=== PATIENT | female | born 1975 | race Caucasian/White ===

== ENCOUNTER → 2016-12-06 | Outpatient (CLI) | payer MEDICAID ==
--- NOTE | 2016-12-06 12:03 | MR ---
MR left hip HISTORY: Pain in left hip Multiplanar multisequence imaging through the pelvis with small [id number] images through the left hip. No comparisons There is abnormal signal present at the insertion of the gluteus tendon on the greater trochanter, fl uid signal is present, there is likely local edema and possibly tendinosis or possibly partial tear. Probable physiologic joint fluid present within both hips. Bone marrow signal is symmetric and within normal limits. No evident labral tear. Articular cartilage signal is maintained. There is a left adn exal cystic mass measuring 3.6 x 3 x 1.9 cm which show some increased signal on T1-weighted sequences as well as T2 and may represent a hemorrhagic cyst, there is some luminal signal abnormality. Some f ree fluid present within the pelvis. Some small focal areas of low signal within the uterus may repre sent fibroids. IMPRESSION: Tendinopathy suspected at the insertion of the gluteus tendon at the greater trochanter. There may be partial tear. Additional findings above.
== END | disposition home or self-care (01) ==
LOC: RADMRIMAIN 08:09
PROVIDERS: ATTEND Orthopaedic Surgery
DX: S76.012A Strain of muscle, fascia and tendon of left hip, initial encounter (principal); S76.312D Strain of muscle, fascia and tendon of the posterior muscle group at thigh level, left thigh, subsequent encounter

== ENCOUNTER 2017-08-06 16:27 | Emergency (ER) | payer MEDICAID ==
[2017-08-06 16:31] VITALS: BP 137/75; PULSE 109; RESP 20; TEMP 98.1
[2017-08-06] MEDS ORDERED: AMOXIC-POT CLAV 875-125MG 1 EACH TAB PO STA (16:40)
[2017-08-06] MEDS ORDERED: DIPH,PERTUS(ACELL)TETVAC-LF 0.5 ML VIAL IM ONE (16:43)
--- NOTE | 2017-08-06 16:49 | ED ---
Animal Bite HPI - General Chief Complaint: Animal Bite Stated Complaint: Dog bite back of leg Time Seen by Provider: 08/06/17 16:33 Source: patient, RN notes reviewed Mode of arrival: ambulatory Limitations: no limitations - History of Present Illness Initial Comments: 41-year-old female presented emergency Department chief complaint of dog bite to her left posterior thigh. Patient states she was running when a neighbor's dog chemo and bent her leg. She states she does not wound person is and whether dog is at. She does not know the status of rejection at this time. Patient states she has not had a tetanus in over 5 years. Patient states she has NO KNOWN DRUG ALLERGIES. Patient states there is very painful sore at this time. - Related Data Home Medications Medication Instructions Recorded Confirmed Desvenlafaxine Succinate [Pristiq 50 mg PO QAM 10/12/14 10/14/14 ER] Previous Rx's Medication Instructions Recorded HYDROcodone/APAP 5-325MG [[place] 5] 1 - 2 each PO Q4HR PRN #90 tab 10/14/14 hydrOXYzine PAMOATE [Vistaril] 25 mg PO QID PRN #30 cap 10/14/14 Amoxicillin/Potassium Clav 1 tab PO Q12HR #20 tab 08/06/17 [Augmentin 875-125 Tablet] Hydrocodone/Acetaminophen [[place] 1 tab PO Q6HR PRN #20 tab 08/06/17 5-325] Allergies Allergy/AdvReac Type Severity Reaction Status Date / Time No Known Allergies Allergy Verified 08/06/17 16:31 Review of Systems ROS Statement: Those systems with pertinent positive or pertinent negative responses have been documented in the HPI. ROS Other: All systems not noted in ROS Statement are negative. Past Medical History Past Medical History: No Reported History History of Any Multi-Drug Resistant Organisms: None Reported Past Surgical History: Uterine Ablation Additional Past Surgical History / Comment(s): LASIK SURGERY, Left shoulder surgery Past Anesthesia/Blood Transfusion Reactions: No Reported Reaction Past Psychological History: Depression Smoking Status: Never smoker Past Alcohol Use History: Occasional Past Drug Use History: None Reported General Exam Limitations: no limitations General appearance: alert, in no apparent distress Head exam: Present: atraumatic, normocephalic, normal inspection Neck exam: Present: normal inspection. Absent: tenderness, meningismus, lymphadenopathy Respiratory exam: Present: normal lung sounds bilaterally. Absent: respiratory distress, wheezes, rales, rhonchi, stridor Cardiovascular Exam: Present: regular rate, normal rhythm, normal heart sounds. Absent: systolic murmur, diastolic murmur, rubs, gallop, clicks Extremities exam: Present: other (Left posterior thigh region there is a large area of swelling in an area where the dog bite was with breakage of the skin) Course Vital Signs 08/06/17 16:29 Temperature 98.1 F Pulse Rate 109 H Respiratory 20 Rate Blood Pressure 137/75 O2 Sat by Pulse 98 Oximetry Medical Decision Making - Medical Decision Making 41-year-old female presented for a dog bite. Patient does not with a dog lives at and will follow with ulnar. Patient filled out dog bite form and will also follow-up with animal control. We discussed that if she does not another rabies status that she needs return for rabies vaccine tear. She does agree this plan. Patient was placed on Augmentin the wound was cleaned bacitracin applied. Disposition Clinical Impression: Dog bite Disposition: HOME SELF-CARE Condition: Stable Instructions: Animal Bite (ED) Additional Instructions: Please follow up with animal control and with dog manager mac for rabies vaccine status.Please return to the Emergency Department if symptoms worsen or any other concerns. Prescriptions: Amoxicillin/Potassium Clav [Augmentin 875-125 Tablet] 1 tab PO Q12HR #20 tab Hydrocodone/Acetaminophen [[place] 5-325] 1 tab PO Q6HR PRN #20 tab PRN Reason: Pain Referrals: Yoshi Vasquez DO [Primary Care Provider] - 1-2 days Time of Disposition: 16:49
== END 2017-08-06 17:06 | disposition home or self-care (01) ==
LOC: EC 16:27
DX: S71.152A Open bite, left thigh, initial encounter (principal); F32.9 Major depressive disorder, single episode, unspecified; Z23 Encounter for immunization; Z79.899 Other long term (current) drug therapy; W54.0XXA Bitten by dog, initial encounter; Y93.02 Activity, running
CPT/HCPCS: 90471; 90715; 99283

== ENCOUNTER → 2018-02-24 | Outpatient (CLI) | payer MEDICAID ==
[2018-02-24 13:36] LABS: Basophils % (A) 1 %; Eosinophils # (A) 0.1 k/uL (0-0.7); Eosinophils % (A) 2 %; HCT 38.6 % (34.0-46.0); HGB 12.9 gm/dL (11.4-16.0); Lymphocytes # (A) 1.7 k/uL (1.0-4.8); Lymphocytes % (A) 27 %; MCH 28.4 pg (25.0-35.0); MCHC 33.3 g/dL (31.0-37.0); MCV 85.4 fL (80.0-100.0); Mean Platelet Volume 7.6; Monocytes # (A) 0.3 k/uL (0-1.0); Monocytes % (A) 5 %; Neutrophils # (A) 4.2 k/uL (1.3-7.7); Neutrophils % (A) 65 %; Platelet Count 256 k/uL (150-450); RBC 4.52 m/uL (3.80-5.40); RDW 13.1 % (11.5-15.5); WBC 6.5 k/uL (3.8-10.6)
[2018-02-24 15:44] LABS: Erythrocyte Sedimentation Rate 2 mm/hr (0-20)
--- NOTE | 2018-02-24 17:44 | XR ---
EXAMINATION TYPE: XR chest 2V DATE OF EXAM: 02/24/2018 COMPARISON: NONE HISTORY: R05 TECHNIQUE: Frontal and lateral views of the chest are obtained. FINDINGS: There is no focal air space opacity, pleural effusion, or pneumothorax seen. The cardiac silhouette size is within normal limits. The osseous structures are intact. IMPRESSION: No acute cardiopulmonary process.
[2018-02-25 05:16] LABS: Toxoplasma Antibody (IgG) <3.0 IU/mL (<7.2); Toxoplasma Antibody (IgM) <3.0 AU/mL (<8.0)
[2018-02-25 05:58] LABS: Angiotensin-1 Converting Enz. 32 U/L (8-52)
[2018-02-25 13:02] LABS: HLA B27 POSITIVE
[2018-02-27 02:32] LABS: Bartonella henselae Ab, IgG <1:64; Bartonella henselae Ab, IgM < 1:16
[2018-02-27 10:06] LABS: Lyme IgG/IgM 0.1 Index
== END | disposition home or self-care (01) ==
LOC: LABWHC1 13:04
PROVIDERS: ATTEND Ophthalmology
DX: R05 Cough (principal); H44.111 Panuveitis, right eye
CPT/HCPCS: 36415; 71046; 82164; 85025; 85549; 85652; 86140; 86480; 86611; 86618; 86777; 86778; 86780; 86812

== ENCOUNTER → 2019-12-13 | Outpatient (CLI) | payer OTHER ==
[2019-12-13 13:31] LABS: African American GFR (CKD) >90 (>60 ml/min/1.73 sqM); Blood Urea Nitrogen 11 mg/dL (7-17); Non-African American GFR(CKD) >90 (>60 ml/min/1.73 sqM)
--- NOTE | 2019-12-13 14:20 | CT ---
EXAMINATION TYPE: CT chest wo/w con DATE OF EXAM: 12/13/2019 COMPARISON: NONE HISTORY: Abnormal lung field. CT DLP: 308 mGycm. Automated Exposure Control for Dose Reduction was Utilized. TECHNIQUE: CT scan of the thorax is performed following without and with IV Contrast, patient inject ed with 100 mL of Isovue M300. FINDINGS: LUNGS: There is a 6 mm right upper lobe pulmonary nodule anteriorly on series 4 image 17. Inferior to this there are 3 pulmonary nodules on image 19 measuring up to 6 mm. In the right upper lobe on seri es 4 image 24 there is a pulmonary nodule measuring 1.4 x 1.1 cm adjacent pulmonary vasculature. Infe riorly this extends anteriorly on image 26 with a maximum dimension of 1.9 cm. There are groundglass nodules in the right middle lobe and right lower lung marked on images 30 and 39 as well as image 40. These are all subcentimeter. The largest nodule is 5 mm adjacent to a right upper lobe bronchus oscar in series 4 image 25. MEDIASTINUM: There are no greater than 1 cm hilar or mediastinal lymph nodes. No pericardial effusi on is seen. Ascending thoracic aorta is within normal limits of size as is the aortic root and desce nding thoracic aorta. OTHER: r there is an indeterminant hepatic lesion that is subcentimeter in the left hepatic lobe fely suring 7 mm. Another too small to accurately characterize lesion in segment IVb measures 7 mm as well . Partial visualization of a third 6 mm hepatic lesion in segment IVb is seen. The liver is diffusely hypoattenuated is commonly related to hepatic steatosis and limiting evaluation for underlying zay s. A fluid attenuated 1.2 probable hepatic cyst is present in segment 7. Small splenule is present ad jacent to the redding spleen. IMPRESSION: 1. Multiple right-sided pulmonary nodules the lung bases irregular and measures up to 1.4 cm in its m ost confluent component that elongates to measure 1.9 cm. This is adjacent to a right upper lobe bron chus and may be amenable to navigational bronchoscopy and biopsy. Alternatively PET/CT could be consi dered. Given the larger nodule these are concerning for neoplasm however given the groundglass morpho logy some of these nodules alternatively inflammatory or infectious etiologies are possible. 3. There are also multiple hepatic lesions that are too small to accurately characterize. The largest of these appears as a simple cyst.
== END | disposition home or self-care (01) ==
LOC: RADCTMAIN 12:54
PROVIDERS: ATTEND Physician Assistant
DX: R91.8 Other nonspecific abnormal finding of lung field (principal)
CPT/HCPCS: 82565; 84520; 71270; 36415; Q9967

== ENCOUNTER → 2021-11-05 | Outpatient (CLI) | payer OTHER ==
--- NOTE | 2021-11-06 09:08 | MM ---
Reason for exam: screening (asymptomatic). Baseline mammogram. History: Took hormonal contraceptives beginning at age 18. Physical Findings: Nurse did not find any significant physical abnormalities on exam. MG 3D Screening Mammo W/Cad Bilateral CC and MLO view(s) were taken. The breast tissue is extremely dense which could obscure a lesion on mammography. There is no discrete abnormality. ASSESSMENT: Negative, BI-RAD 1 RECOMMENDATION: Routine screening mammogram of both breasts in 1 year.
== END | disposition home or self-care (01) ==
LOC: RADMAMWWP 07:07
PROVIDERS: ATTEND Family Medicine
DX: Z12.31 Encounter for screening mammogram for malignant neoplasm of breast (principal)
CPT/HCPCS: 77063; 77067

== ENCOUNTER → 2022-11-21 | Outpatient (CLI) | payer OTHER ==
--- NOTE | 2022-11-21 09:56 | MR ---
EXAMINATION TYPE: MR sacroiliac joints wo con DATE OF EXAM: 11/21/2022 COMPARISON: None HISTORY: Ankylosing spondylitis of spine, pain in pelvis Standard multiplanar, multisequence MRI departmental protocol Multiplanar, multisequence images of the sacroiliac joints were acquired without contrast. FINDINGS: There is heterogeneous marrow signal which could be on the basis of osteopenia or osteoporosis. SI joints are symmetric. There is no evidence of erosive change or narrowing of the joint space. Ther e is no fatty replacement of the indigo joint space narrowing. No evidence to suggest active edema. There is disc signal loss involving the visualized lower lumbar vertebral segments with a sagittal di sc broad-based bulge L5-S1. Minimal contact of the thecal sac. There is greater right lateral disc co mponent narrowing of the neural foramina encroachment upon the exiting nerve root. Mild facet arthrop athy with no canal stenosis or foraminal encroachment. Incidental note made of small amount of free fluid in the pelvis, suspected uterine fibroid and poten tial ovarian cysts. Larger 5.2 cm mass extending off the posterior uterus may represent an exophytic fibroid. Other etiologies excluded. Ultrasound recommended. IMPRESSION: 1. SI joints have a normal appearance. 2. There is a small amount of free fluid in the pelvis with suspected uterine fibroids and bilateral ovarian cysts. There is a 5.2 cm mass extending posterior margin uterus. Recommend follow-up ultrasou nd. Likely large uterine fibroid, other etiologies not excluded. 3. Nonspecific heterogeneous marrow signal can be seen with osteopenia or osteoporosis and marrow rec onversion. Other etiologies felt less likely but not excluded. 4. There is degenerative disc disease within the visualized lower lumbar spine with sagittal disc bul ge L5-S1. Bulging extends laterally to the right with mild to moderate right-sided foraminal encroach ment. Right lateral disc protrusion in the differential diagnosis with encroachment of the exiting ri ght nerve root. Correlate for right-sided radiculopathy at this level. No canal stenosis.
== END | disposition home or self-care (01) ==
LOC: RADMRIMAIN 08:29
PROVIDERS: ATTEND Nurse Practitioner Family
DX: M51.17 Intervertebral disc disorders with radiculopathy, lumbosacral region (principal); M99.73 Connective tissue and disc stenosis of intervertebral foramina of lumbar region
CPT/HCPCS: 72195

== ENCOUNTER → 2023-10-21 | Outpatient (CLI) | payer OTHER ==
--- NOTE | 2023-10-23 00:01 | MM ---
Reason for Exam: Screening (asymptomatic). Last mammogram was performed 1 year(s) and 11 month(s) ago. Patient History: Menarche at age 10. First Full-Term at age 25. Patient has history of breast feeding. Hormonal Contraceptives, from age 18 until age 24. Last menstrual period: 08/13/2023 Risk Values: Jeanne 5 year model risk: 1.1%. NCI Lifetime model risk: 11.0%. Prior Study Comparison: 11/05/2021 Bilateral Screening Mammogram, [facility]. Tissue Density: The breast tissue is heterogeneously dense. This may lower the sensitivity of mammography. Findings: Analyzed By CAD. Unchanged bilateral areas of asymmetric densities. There is no suspicious group of microcalcifications or new suspicious mass in either breast. Overall Assessment: Benign, BI-RAD 2 Management: Screening Mammogram of both breasts in 1 year. . Patient should continue monthly self-breast exams. A clinical breast exam by your physician is recommended on an annual basis. This exam should not preclude additional follow-up of suspicious palpable abnormalities. Note on Jeanne scores and lifetime risk: 1. A Jeanne score greater than 3% is considered moderate risk. If this is the case, consider specialist referral to assess eligibility for a risk reducing agent. 2. If overall lifetime risk for the development of breast cancer is 20% or higher, the patient may qualify for future screening with alternating mammogram and breast MRI. Electronically signed and approved by: Casi Gary M.D. Radiologist
== END | disposition home or self-care (01) ==
LOC: RADMAMWWP 14:45
PROVIDERS: ATTEND Obstetrics & Gynecology Obstetrics
DX: Z12.31 Encounter for screening mammogram for malignant neoplasm of breast (principal)
CPT/HCPCS: 77063; 77067

== ENCOUNTER → 2024-05-18 | Outpatient (CLI) | payer OTHER ==
[2024-05-18 10:19] LABS: Basophils # (A) 0.04 X 10*3/uL (0.00-0.10); Basophils % (A) 0.8 %; Eosinophils # (A) 0.13 X 10*3/uL (0.04-0.35); Eosinophils % (A) 2.6 %; HCT 36.1 % (37.2-46.3); HGB 11.8 g/dL (12.0-15.0); Lymphocytes # (A) 1.68 X 10*3/uL (0.90-5.00); Lymphocytes % (A) 33.1 %; MCH 29.9 pg (27.0-32.0); MCHC 32.7 g/dL (32.0-37.0); MCV 91.6 FL (80.0-97.0); Mean Platelet Volume 11.4 FL (9.5-12.2); Monocytes # (A) 0.33 X 10*3/uL (0.20-1.00); Monocytes % (A) 6.5 %; NRBC Per 100 WBC 0 X 10*3/uL (0.00-0.01); Neutrophils # (A) 2.87 X 10*3/uL (1.80-7.70); Neutrophils % (A) 56.6 %; Platelet Count 240 X 10*3/uL (140-440); RBC 3.94 X 10*6/uL (4.10-5.20); RDW 13.9 % (11.5-14.5); WBC 5.07 X 10*3/uL (4.50-10.00)
[2024-05-18 10:26] LABS: ALT 10 U/L (8-44); AST 16 U/L (13-35); BUN/Creat Ratio 16.62 Ratio (12.00-20.00); Blood Urea Nitrogen 13.3 mg/dL (9.0-27.0); C Reactive Protein <0.30 mg/dL (0.00-0.80); Calcium 9.1 mg/dL (8.7-10.3); Carbon Dioxide 23.7 mmol/L (21.6-31.8); Chloride 107 mmol/L (96-109); Glucose 97 mg/dL (70-110); Potassium 3.8 mmol/L (3.5-5.5); Sodium 141 mmol/L (135-145)
[2024-05-18 11:29] LABS: Erythrocyte Sedimentation Rate <1 mm/Hr (0-20)
== END | disposition home or self-care (01) ==
LOC: LABWHC1 07:12
PROVIDERS: ATTEND Internal Medicine Rheumatology
DX: H20.9 Unspecified iridocyclitis (principal)
CPT/HCPCS: 36415; 80048; 84450; 84460; 85025; 85652; 86140

== ENCOUNTER → 2024-11-05 | Outpatient (CLI) | payer OTHER ==
[2024-11-05 15:38] LABS: Basophils # (A) 0.04 X 10*3/uL (0.00-0.10); Basophils % (A) 0.6 %; Eosinophils # (A) 0.06 X 10*3/uL (0.04-0.35); Eosinophils % (A) 0.9 %; HCT 37.4 % (37.2-46.3); Lymphocytes % (A) 27.9 %; MCH 29.3 pg (27.0-32.0); MCHC 32.1 g/dL (32.0-37.0); MCV 91.4 FL (80.0-97.0); Mean Platelet Volume 11.3 FL (9.5-12.2); Monocytes # (A) 0.57 X 10*3/uL (0.20-1.00); Monocytes % (A) 8.8 %; NRBC Per 100 WBC 0 X 10*3/uL (0.00-0.01); Neutrophils # (A) 3.97 X 10*3/uL (1.80-7.70); Neutrophils % (A) 61.6 %; Platelet Count 280 X 10*3/uL (140-440); RBC 4.09 X 10*6/uL (4.10-5.20); RDW 13.7 % (11.5-14.5); WBC 6.45 X 10*3/uL (4.50-10.00)
[2024-11-05 16:12] LABS: % Iron Saturation 43.42 (12.00-45.00); ALT 6 U/L (8-44); AST 14 U/L (13-35); Albumin 4.2 g/dL (3.8-4.9); Albumin/Globulin Ratio 1.75 Ratio (1.60-3.17); Alkaline Phosphatase 50 U/L (41-126); Blood Urea Nitrogen 11.2 mg/dL (9.0-27.0); Calcium 9.2 mg/dL (8.7-10.3); Carbon Dioxide 26.4 mmol/L (21.6-31.8); Chloride 105 mmol/L (96-109); Chol/HDL Ratio 3.02 Ratio; Globulin 2.4 g/dL (1.6-3.3); Glucose 90 mg/dL (70-110); Iron 132 UG/DL (50-170); LDL Cholesterol,Calculated 101.1 mg/dL (0.0-131.0); Potassium 4.4 mmol/L (3.5-5.5); Sodium 140 mmol/L (135-145); T4, Free (Free Thyroxine) 1.19 ng/dL (0.80-1.80); Total Bilirubin 0.6 mg/dL (0.3-1.2); Total Iron Binding Capacity 304 UG/DL (228-460); Total Protein 6.6 g/dL (6.2-8.2); VLDL Calculation 11.94 mg/dL (5.00-40.00)
== END | disposition home or self-care (01) ==
LOC: LABWHC1 07:38
PROVIDERS: ATTEND Nurse Practitioner Adult Health
DX: Z00.00 Encounter for general adult medical examination without abnormal findings (principal); D64.9 Anemia, unspecified
CPT/HCPCS: 36415; 80053; 80061; 82607; 82728; 82746; 83036; 83540; 83550; 84439; 84443; 85025

== ENCOUNTER → 2024-11-10 | Outpatient (CLI) | payer OTHER ==
--- NOTE | 2024-11-14 00:49 | MM ---
Reason for Exam: Screening (asymptomatic). Last mammogram was performed 1 year(s) and 1 month(s) ago. Patient History: Menarche at age 10. First Full-Term at age 25. Patient has history of breast feeding. Hormonal Contraceptives, from age 18 until age 24. Maternal grandmother had breast cancer. Risk Values: Jeanne 5 year model risk: 1.2%. NCI Lifetime model risk: 10.8%. Prior Study Comparison: 11/05/2021 Bilateral Screening Mammogram, [facility]. 10/21/2023 Bilateral MG 3D screening mammo w/cad, [facility]. Tissue Density: The breasts are heterogeneously dense, which may obscure small masses. Findings: Analyzed By CAD. The pattern is symmetrical. There is a large rounded density with partially obscured margins within the anterior right breast. This was present previously and appear stable. No suspicious groups of microcalcifications, spiculated or lobular masses, architectural distortion or other secondary signs of malignancy are mammographically apparent. Overall Assessment: Benign, BI-RAD 2 Management: Screening Mammogram of both breasts in 1 year. A negative mammogram report should not preclude additional follow up of suspicious palpable abnormalities. Patient should continue monthly self breast exam. A clinical breast exam by your physician is recommended on an annual basis and results should be correlated with mammographic findings. Note on Jeanne scores and lifetime risk: 1. A Jeanne score greater than 3% is considered moderate risk. If this is the case, consider specialist referral to assess eligibility for a risk reducing agent. 2. If overall lifetime risk for the development of breast cancer is 20% or higher, the patient may qualify for future screening with alternating mammogram and breast MRI. [facility], , 11/14/2024 12:47 AM. Electronically signed and approved by: Archie Lacey D.O. Radiologis
== END | disposition home or self-care (01) ==
LOC: RADMAMWWP 11:32
PROVIDERS: ATTEND Family Medicine
DX: Z12.31 Encounter for screening mammogram for malignant neoplasm of breast (principal); Z80.3 Family history of malignant neoplasm of breast; R92.333 Mammographic heterogeneous density, bilateral breasts
CPT/HCPCS: 77063; 77067

== ENCOUNTER 2024-11-30 08:36 | Day surgery (SDC) | payer OTHER ==
[2024-11-29 09:26] VITALS: BMI 25.3
[~2024-11-30 08:36] MED LIST: LIDOCAINE 1% (10MG/ML) FOR IV START INTRADERMA PRN
[2024-11-30 09:20] VITALS: TEMP 97.9
[2024-11-30] MEDS: IV FLUID CONTINUATION 1,000 ML IV ONE (09:23)
[2024-11-30] MEDS: LACTATED RINGERS 1,000 ML IV SCH (09:23)
[2024-11-30] MEDS ORDERED: PROPOFOL 10 MG/ML 20 ML VIAL IV ONE (10:11)
[2024-11-30] MEDS ORDERED: LIDOCAINE 2% (PF) 20 MG/ML 5 ML VIAL ONE (10:11)
--- NOTE | 2024-11-30 10:30 | P.PCN ---
Date of Procedure: 11/30/24 Procedure(s) Performed: BRIEF HISTORY: Patient is a 49-year-old pleasant white female scheduled for an elective colonoscopy as a part of screening for colon cancer. PROCEDURE PERFORMED: Colonoscopy. PREOPERATIVE DIAGNOSIS: Screening for colon cancer. IV sedation per Anesthesia. PROCEDURE: After informed consent was obtained, the patient, was brought into the endoscopy unit. IV sedation was administered by Anesthesia under continuous monitoring. Digital rectal examination was normal. Initially the Olympus CF-160 flexible video colonoscope was then inserted in the rectum, gradually advanced into the cecum without any difficulty. Careful examination was performed as the scope was gradually being withdrawn. Ileocecal valve and the appendiceal orifice were visualized and appeared normal. Prep was excellent. Mucosa of the cecum, ascending colon, transverse colon, descending colon, sigmoid colon, and rectum appeared normal. Retroflexion was performed in the rectum and no lesions were seen. The patient tolerated the procedure well. IMPRESSION: Normal-appearing colon from rectum to cecum no evidence of colorectal neoplasia.. RECOMMENDATIONS: Findings of this examination were discussed with the patient as well as her family. She was advised to have repeat screening colonoscopy in 10 years..
[2024-11-30 10:49] VITALS: BP 115/80; PULSE 79; RESP 18
== END 2024-11-30 11:08 | disposition home or self-care (01) ==
LOC: ORWHC2ENDO 08:36
PROVIDERS: ATTEND Internal Medicine Gastroenterology
DX: Z12.11 Encounter for screening for malignant neoplasm of colon (principal); J30.2 Other seasonal allergic rhinitis; Z79.899 Other long term (current) drug therapy; Z88.1 Allergy status to other antibiotic agents
CPT/HCPCS: 81025; J2704; J2003; G0121; 45378